=== PATIENT | female | born 1970 | race Caucasian/White ===

== ENCOUNTER → 2016-06-12 | Outpatient (REF) | payer OTHER ==
[~2016-06-12] MED LIST: ATIV1TAB10 PO; IBUP80TA PO; MONT10TA2 PO; NEUR300C PO; PERC10TA17 PO; RIZA10TA2 PO; SOMA350T PO; TRAZ100T4 PO; VENL37.598 PO; [UNRECOGNIZED DRUG - CODE] OT
== END ==
LOC: M SFHCLERA 16:48
PROVIDERS: ATTEND Physician Assistant
DX: J02.9 Acute pharyngitis, unspecified (principal)

== ENCOUNTER → 2016-07-02 | Outpatient (CLI) | payer OTHER ==
[2016-07-02 14:29] LABS: BASO % 0.3 % (0.0-1.0); EOS # 0.5 K/mm3 (0.0-0.50); EOS % 5.9 % (0.0-3.0); LARGE UNSTAINED CELL # 0.2 K/mm3 (0.0-0.4); LARGE UNSTAINED CELL % 1.7 % (0.0-4.0); LYMPH # 3.2 K/mm3 (1.5-4.5); LYMPH % 34.1 % (24.0-44.0); MEAN CORPUSCULAR HEMOGLOBIN 29.2 pg (27.0-33.0); MEAN CORPUSCULAR HGB CONC 33.1 g/dl (32.0-36.5); MEAN CORPUSCULAR VOLUME 88.2 fl (80.0-96.0); MONO # 0.4 K/mm3 (0.0-0.8); MONO % 4.9 % (0.0-5.0); NEUTROPHILS # 4.7 K/mm3 (1.8-7.7); NEUTROPHILS % 53.2 % (36.0-66.0); PLATELET COUNT, AUTOMATED 266 k/mm3 (150-450); RED CELL DISTRIBUTION WIDTH 12.2 % (11.5-14.5); WHITE BLOOD COUNT 8.9 K/mm3 (4.0-10.0)
--- NOTE | 2016-07-02 14:29 | REP ---
Clinical: Pain. Technique: AP weightbearing view of the right and left knee. Findings: Examination appears normal for age. Joint spaces are symmetric bilaterally. Minimal medial joint space compartment narrowing cannot be excluded. Impression: Minimal medial joint space narrowing. Signed by Tip Villanueva MD 07/02/2016 02:21 P
--- NOTE | 2016-07-02 14:29 | REP ---
Clinical: Trauma. Technique: AP, lateral, bilateral oblique and sunrise views right and left knee . Findings: The osseous structures and joint spaces are intact and normal. There is no evidence for acute fracture or dislocation. No joint effusion is appreciated. Surrounding soft tissues are unremarkable. No subcutaneous emphysema or radiodense foreign body. Impression: Age appropriate examination. Signed by Tip Villanueva MD 07/02/2016 02:20 P
--- NOTE | 2016-07-02 14:32 | REP ---
Clinical: Pain. Technique: AP, lateral, bilateral oblique views of the right and left hand. Findings: Osseous structures, soft tissues and joint spaces are relatively symmetric and normal for age. Mild joint space narrowing to the interphalangeal joints primarily involving the bilateral fifth distal interphalangeal joints. No further overt osteoarthritic degenerative changes are identified. No acute fracture dislocation. Impression: Mild joint space narrowing at the interphalangeal joints. Signed by Tip Villanueva MD 07/02/2016 02:24 P
--- NOTE | 2016-07-02 14:35 | REP ---
Clinical: Pain. Technique: AP, angled, and bilateral oblique views of the sacroiliac joints. Findings: Sacroiliac joints are symmetric and normal for age. Impression: Normal symmetric sacroiliac joints. Signed by Tip Villanueva MD 07/02/2016 02:27 P
[2016-07-02 15:01] LABS: ALBUMIN 3.6 GM/DL (3.2-5.2); ALBUMIN/GLOBULIN RATIO 1.16 (1.00-1.93); ALKALINE PHOSPHATASE 129 U/L (45-117); ALT/SGPT 21 U/L (12-78); ANION GAP 6 MEQ/L (8-16); AST/SGOT 18 U/L (15-37); BILIRUBIN,TOTAL 0.1 MG/DL (0.2-1.0); BLOOD UREA NITROGEN 15 MG/DL (7-18); CALCIUM LEVEL 9.2 MG/DL (8.5-10.1); CARBON DIOXIDE LEVEL 29 MEQ/L (21-32); CHLORIDE LEVEL 108 MEQ/L (98-107); CREATININE FOR GFR 0.93 MG/DL (0.55-1.02); GLOMERULAR FILTRATION RATE > 60.0 (>58); GLUCOSE, FASTING 127 MG/DL (70-105); SODIUM LEVEL 143 MEQ/L (136-145); TOTAL PROTEIN 6.7 GM/DL (6.4-8.2)
[2016-07-02 15:24] LABS: ERYTHROCYTE SEDIMENTATION RATE 25 mm/hr (0-20)
[2016-07-04 00:06] LABS: IgG P18 AB Present (.); IgG P23 AB Absent (.); IgG P28 AB Absent (.); IgG P30 AB Absent (.); IgG P41 AB Present (.); IgG P45 AB Absent (.); IgG P58 AB Absent (.); IgG P66 AB Absent (.); IgG P93 AB Absent (.); IgM P39 AB Absent (.); IgM P41 AB Absent (.)
== END ==
LOC: M LAB 13:21
PROVIDERS: ATTEND Internal Medicine Rheumatology
DX: M35.9 Systemic involvement of connective tissue, unspecified (principal); E55.9 Vitamin D deficiency, unspecified; Z79.899 Other long term (current) drug therapy; M79.641 Pain in right hand; M79.642 Pain in left hand; M25.561 Pain in right knee; M25.562 Pain in left knee; M53.3 Sacrococcygeal disorders, not elsewhere classified

== ENCOUNTER → 2016-07-02 | Outpatient (CLI) | payer OTHER ==
[2016-07-02 14:28] LABS: BASO % 0.4 % (0.0-1.0); EOS # 0.5 K/mm3 (0.0-0.50); LARGE UNSTAINED CELL # 0.1 K/mm3 (0.0-0.4); LARGE UNSTAINED CELL % 1.3 % (0.0-4.0); LYMPH % 33.9 % (24.0-44.0); MEAN CORPUSCULAR HEMOGLOBIN 29.7 pg (27.0-33.0); MEAN CORPUSCULAR HGB CONC 33.7 g/dl (32.0-36.5); MONO # 0.5 K/mm3 (0.0-0.8); MONO % 5.4 % (0.0-5.0); NEUTROPHILS # 4.6 K/mm3 (1.8-7.7); PLATELET COUNT, AUTOMATED 283 k/mm3 (150-450); RED CELL DISTRIBUTION WIDTH 12.1 % (11.5-14.5); WHITE BLOOD COUNT 8.6 K/mm3 (4.0-10.0)
[2016-07-02 14:53] LABS: LUTEINIZING HORMONE 86.8 mIU/mL
[2016-07-02 14:58] LABS: ALBUMIN 3.6 GM/DL (3.2-5.2); ALBUMIN/GLOBULIN RATIO 1.13 (1.00-1.93); ALKALINE PHOSPHATASE 124 U/L (45-117); ALT/SGPT 21 U/L (12-78); ANION GAP 5 MEQ/L (8-16); AST/SGOT 17 U/L (15-37); BILIRUBIN,TOTAL 0.2 MG/DL (0.2-1.0); BLOOD UREA NITROGEN 14 MG/DL (7-18); CALCIUM LEVEL 9.2 MG/DL (8.5-10.1); CARBON DIOXIDE LEVEL 29 MEQ/L (21-32); CHLORIDE LEVEL 108 MEQ/L (98-107); CHOLESTEROL LEVEL 254 MG/DL (<200); CREATININE FOR GFR 0.94 MG/DL (0.55-1.02); GLOMERULAR FILTRATION RATE > 60.0 (>58); GLUCOSE, FASTING 127 MG/DL (70-105); POTASSIUM SERUM 4.1 MEQ/L (3.5-5.1); SODIUM LEVEL 142 MEQ/L (136-145); TOTAL PROTEIN 6.8 GM/DL (6.4-8.2); TRIGLYCERIDES LEVEL 196 MG/DL (<150)
== END ==
LOC: M LAB 13:16
PROVIDERS: ATTEND Family Medicine
DX: Z00.00 Encounter for general adult medical examination without abnormal findings (principal)

== ENCOUNTER 2016-11-12 19:06 | Emergency (ER) | payer OTHER ==
[~2016-11-12] VITALS: Ht 162.6 cm; Wt 62.6 kg
[~2016-11-12 19:06] MED LIST changes: -PERC10TA17 PO; +PERC10TA26 PO; +TRAZ-136 PO; -TRAZ100T4 PO
[2016-11-12] MEDS ORDERED: HYDROmorphone HCL 1 MG/ML SYRINGE (J1170) IM ONE (20:00)
--- NOTE | 2016-11-12 21:30 | REPUSA ---
CLINICAL HISTORY: Neck pain. Trauma. TECHNIQUE: Multiple axial images were obtained through the cervical spine. Images were also reconstru cted in coronal and sagittal planes. The study was performed without IV contrast. COMMENTS: There is no fracture or spondylolisthesis visualized. The paraspinal soft tissues are unremarkable. T here are no lytic or blastic lesions. Straightening of cervical lordosis is seen, suggesting muscular spasm. There is evidence of multileve l disk disease, demonstrated by osteophytosis and endplate sclerosis. Moderate loss of disc space h eight is seen at C5-6. Herniations are noted at C3-C4 through C6-7 producing mild to moderate bilateral foraminal and canal stenosis at each level. IMPRESSION: 1. No fracture or spondylolisthesis. 2. Straightening of cervical lordosis is seen, suggesting muscular spasm. 3. Herniations are noted at C3-C4 through C6-7 producing mild to moderate bilateral foraminal and can al stenosis at each level. Thank you for your kind referral of this patient.
[2016-11-12] MEDS ORDERED: PERCOCET 5MG/325MG TAB PO ONE (21:45)
[2016-11-12] MEDS ORDERED: ONDANSETRON 4 MG ORAL DISINTEGRATING TAB (S0181) PO ONE (21:45)
[2016-11-12 21:55] VITALS: BP 112/66
--- NOTE | 2016-11-16 12:53 | ED PDOC ---
Post-Departure Follow-Up dr macias faxed formal report of ct c spine for fu Wesley Buitrago MD Nov 16, 2016 12:53
== END 2016-11-12 22:01 | disposition home or self-care (01) ==
LOC: M ED 19:06
DX: S16.1XXA Strain of muscle, fascia and tendon at neck level, initial encounter (principal); M54.9 Dorsalgia, unspecified; G89.29 Other chronic pain; Z72.0 Tobacco use; V49.40XA Driver injured in collision with unspecified motor vehicles in traffic accident, initial encounter; Y92.410 Unspecified street and highway as the place of occurrence of the external cause; Y93.89 Activity, other specified; Y99.9 Unspecified external cause status
CPT/HCPCS: 72125; 96372; 99282; J1170

== ENCOUNTER 2016-11-28 15:03 | Emergency (ER) | payer OTHER ==
[~2016-11-28] VITALS: Ht 162.6 cm; Wt 63.6 kg
[2016-11-28] MEDS ORDERED: KETOROLAC 30 MG/ML VIAL (J1885) IV ONE (16:15)
[2016-11-28] MEDS ORDERED: KETOROLAC 30 MG/ML VIAL (J1885) IM ONE (16:15)
[2016-11-28 16:36] VITALS: BP 121/72
[2016-11-28] MEDS ORDERED: NAPR500T3 PO (16:46)
--- NOTE | 2016-11-29 07:20 | REP ---
Cervical spine series: Seven views. History: Neck pain. Findings: Lateral views done in flexion/extension and neutral position show straightening and limitation of flexion/extension range of motion. No subluxation or instability is seen. There is degenerative disc narrowing and anterior osteophyte formation at C5-6. No subluxation or instability is seen. Open mouth odontoid and AP views are unremarkable. Oblique images demonstrate intact neural foramina bilaterally at each cervical level and normally aligned facets. Impression: Mild degenerative disc changes at C5-6. Straightening and limitation of flexion/extension range of motion. Otherwise negative. Signed by Neil Fountain MD 11/29/2016 08:47 A
--- NOTE | 2016-11-29 21:30 | ECGEPIP ---
Stationary ECG Study [facility] - ED Test Date: 2016-11-28 Pat Name: PETE ELIZALDE Department: Room: - Gender: F Local Flatbed Driver: lali : 1970 Requested By: JENNIFER Trent PA-C Order Number: [id number] Reading MD: Sarah Hart Measurements Intervals Spur Rate: 70 P: 60 AK: 160 QRS: 48 QRSD: 96 T: 50 QT: 387 QTc: 418 Interpretive Statements SINUS RHYTHM NO PRIOR FOR COMPARISON Electronically Signed On 11-29-2016 21:30:23 EDT by Sarah Hart
== END 2016-11-28 17:01 | disposition home or self-care (01) ==
LOC: M ED 15:03
DX: S90.122A Contusion of left lesser toe(s) without damage to nail, initial encounter (principal); S06.0X0A Concussion without loss of consciousness, initial encounter; Z72.0 Tobacco use; W20.8XXA Other cause of strike by thrown, projected or falling object, initial encounter; Y92.89 Other specified places as the place of occurrence of the external cause; Y93.89 Activity, other specified; Y99.0 Civilian activity done for income or pay
CPT/HCPCS: 72052; 93005; 96372; 96374; 99283; J1885

== ENCOUNTER 2016-12-03 18:51 | Emergency (ER) | payer OTHER ==
[~2016-12-03] VITALS: Ht 162.6 cm; Wt 63.6 kg
[~2016-12-03 18:51] MED LIST changes: +NAPR500T3 PO
[2016-12-03] MEDS ORDERED: CELE1CAP9 (19:00)
[2016-12-03] MEDS ORDERED: TRAZ1TAB14 (19:00)
[2016-12-03] MEDS ORDERED: GABA600T (19:00)
[2016-12-03] MEDS ORDERED: LORA0.5T11 (19:00)
[2016-12-03] MEDS ORDERED: RIZA10TA2 (19:00)
[2016-12-03] MEDS ORDERED: CARI350T (19:00)
[2016-12-03] MEDS ORDERED: LIDOCAINE 2% MDV 20 ML VIAL SC ONE (20:00)
[2016-12-03] MEDS ORDERED: DERMABOND TOPICAL SKIN ADHESIVE TOP ONE (20:00)
[2016-12-03 21:35] VITALS: BP 153/93
--- NOTE | 2016-12-04 10:54 | REP ---
LEFT GREAT TOE SERIES: Four views. HISTORY: Left great toe trauma. FINDINGS: Four views left great toe are presented. On the lateral radiograph there is a triangular fragment of bone dorsally adjacent to the distal tip of the distal phalanx. This may be an old chip fracture. It does not appear to be an acute finding. IMPRESSION: No acute fracture noted. Mild osteoarthritic spurring is seen at the 1st MTP joint. Signed by Neil Fountain MD 12/04/2016 09:22 A
== END 2016-12-03 21:38 | disposition home or self-care (01) ==
LOC: M ED 18:51
DX: S91.212A Laceration without foreign body of left great toe with damage to nail, initial encounter (principal); Z72.0 Tobacco use; X58.XXXA Exposure to other specified factors, initial encounter; Y92.89 Other specified places as the place of occurrence of the external cause; Y93.89 Activity, other specified; Y99.9 Unspecified external cause status

== ENCOUNTER → 2018-01-01 | Outpatient (CLI) | payer OTHER ==
[2018-01-01 09:37] LABS: APPEARANCE, URINE CLEAR (CLEAR); BACTERIA, URINE AUTO NEGATIVE (NEGATIVE); BILIRUBIN, URINE AUTO NEGATIVE (NEGATIVE); BLOOD, URINE BLOOD NEGATIVE (NEGATIVE); COLOR, URINE YELLOW (YELLOW); GLUCOSE, URINE (UA) AUTO NEGATIVE (NEGATIVE); KETONE, URINE AUTO NEGATIVE (NEGATIVE); LEUKOCYTE ESTERASE, URINE AUTO NEGATIVE (NEGATIVE); MUCUS, URINE SMALL (NEGATIVE); NITRITE, URINE AUTO NEGATIVE (NEGATIVE); PROTEIN, URINE AUTO NEGATIVE (NEGATIVE); RBC, URINE AUTO 0 /HPF (0-3); SPECIFIC GRAVITY URINE AUTO 1.013 (1.002-1.035); SQUAMOUS EPITHELIAL CELL UR AU 0 /HPF (0-6); UROBILINOGEN, URINE AUTO 0.2 mg/dL (0.0-2.0); WBC, URINE AUTO 0 /HPF (0-3)
[2018-01-01 09:39] LABS: BASO % 0.2 % (0.0-1.0); EOS # 0.5 10^3/uL (0.0-0.50); EOS % 2.8 % (0.0-3.0); HEMATOCRIT 40.9 % (36.0-47.0); HEMOGLOBIN 13.6 g/dl (12.0-15.5); IMMATURE GRANULOCYTE % 0.2 % (0-3.0); LYMPH # 3.5 10^3/uL (1.5-4.5); LYMPH % 21.5 % (24.0-44.0); MEAN CORPUSCULAR HEMOGLOBIN 30.2 pg (27.0-33.0); MEAN CORPUSCULAR HGB CONC 33.3 g/dl (32.0-36.5); MEAN CORPUSCULAR VOLUME 90.7 fl (80.0-96.0); MONO # 0.9 10^3/uL (0.0-0.8); MONO % 5.4 % (0.0-5.0); NEUTROPHILS # 11.5 10^3/uL (1.8-7.7); NEUTROPHILS % 69.9 % (36.0-66.0); PLATELET COUNT, AUTOMATED 319 10^3/uL (150-450); RED BLOOD COUNT 4.51 10^6/uL (4.00-5.40); RED CELL DISTRIBUTION WIDTH 12.4 % (11.5-14.5); WHITE BLOOD COUNT 16.4 10^3/uL (4.0-10.0)
[2018-01-01 09:59] LABS: ALBUMIN 3.6 GM/DL (3.2-5.2); ALBUMIN/GLOBULIN RATIO 1.09 (1.00-1.93); ALKALINE PHOSPHATASE 134 U/L (45-117); ALT/SGPT 19 U/L (12-78); ANION GAP 7 MEQ/L (8-16); AST/SGOT 14 U/L (7-37); BILIRUBIN,TOTAL 0.2 MG/DL (0.2-1.0); BLOOD UREA NITROGEN 14 MG/DL (7-18); CARBON DIOXIDE LEVEL 28 MEQ/L (21-32); CHLORIDE LEVEL 108 MEQ/L (98-107); CHOLESTEROL LEVEL 236 MG/DL (<200); CHOLESTEROL RISK RATIO 5.619 (<5); FREE T4 0.94 NG/DL (0.76-1.46); GLOMERULAR FILTRATION RATE > 60.0 (>58); GLUCOSE, FASTING 90 MG/DL (70-100); HDL CHOLESTEROL 42 MG/DL (>40); LDL CHOLESTEROL 167 MG/DL (<100); NON-HDL-C 194 MG/DL; POTASSIUM SERUM 4.7 MEQ/L (3.5-5.1); SODIUM LEVEL 143 MEQ/L (136-145); TOTAL PROTEIN 6.9 GM/DL (6.4-8.2); TRIGLYCERIDES LEVEL 133 MG/DL (<150)
== END ==
LOC: M LAB 09:03
DX: Z00.00 Encounter for general adult medical examination without abnormal findings (principal); M17.12 Unilateral primary osteoarthritis, left knee
CPT/HCPCS: 72100

== ENCOUNTER → 2018-01-01 | Outpatient (CLI) | payer OTHER | LOC: M RAD 09:03 | DX: M25.562 Pain in left knee (principal) | CPT/HCPCS: 72100 ==

== ENCOUNTER → 2018-03-09 | Outpatient (REF) | payer OTHER | LOC: M SFHCLERA 10:10 | DX: R11.2 Nausea with vomiting, unspecified (principal) ==

== ENCOUNTER → 2018-09-25 | Outpatient (CLI) | payer OTHER ==
[~2018-09-25] MED LIST changes: +CARI1TAB7; +CELE1CAP9; +GABA600T4; +LORA0.5T11; +NAPR-885 PO; -NAPR500T3 PO; +RIZA10TA2; -TRAZ-136 PO; +TRAZ-163 PO; +TRAZ1TAB14
[2018-09-25 13:16] LABS: BASO % 0.3 % (0.0-1.0); EOS # 0.5 10^3/uL (0.0-0.50); HEMATOCRIT 41.3 % (36.0-47.0); HEMOGLOBIN 14.3 g/dl (12.0-15.5); LYMPH % 34.2 % (24.0-44.0); MEAN CORPUSCULAR HEMOGLOBIN 31.4 pg (27.0-33.0); MEAN CORPUSCULAR HGB CONC 34.6 g/dl (32.0-36.5); MEAN CORPUSCULAR VOLUME 90.6 fl (80.0-96.0); MONO # 0.6 10^3/uL (0.0-0.8); MONO % 5.1 % (0.0-5.0); NEUTROPHILS # 6.5 10^3/uL (1.8-7.7); PLATELET COUNT, AUTOMATED 298 10^3/uL (150-450); RED BLOOD COUNT 4.56 10^6/uL (4.00-5.40); WHITE BLOOD COUNT 11.6 10^3/uL (4.0-10.0)
[2018-09-25 13:54] LABS: CHOLESTEROL RISK RATIO 3.711 (<5); FREE T4 1.09 NG/DL (0.76-1.46); THYROID STIMULATING HORMONE 0.934 uIU/ML (0.358-3.740)
== END ==
LOC: M LAB 12:54
PROVIDERS: ATTEND Family Medicine
DX: E78.00 Pure hypercholesterolemia, unspecified (principal); D72.829 Elevated white blood cell count, unspecified; Z13.29 Encounter for screening for other suspected endocrine disorder

== ENCOUNTER → 2018-11-10 | Outpatient (CLI) | payer OTHER ==
[~2018-11-10] MED LIST changes: +AJOV225I SUBQ; +ATOR1TAB21 PO; +ISOVUE-370 76% 100ML VIAL (Q9967) As Ordered ONE
--- NOTE | 2018-11-10 12:17 | REP ---
CT BRAIN WITHOUT AND WITH IV CONTRAST: HISTORY: Mass in the left cheek. CT CONTRAST DOSE: 100 mL of intravenous Isovue 370. CT FINDINGS: Bony calvarium is intact. Digital business services assistant views are unremarkable. The visualized paranasal sinuses are clear. No scalp lesion is appreciated. Lateral, third, and fourth ventricles are normal in size and position. Saldana-white differentiation pattern is intact above below the tentorium. There is no evidence of infarct, hemorrhage, extra-axial fluid collection, or mass. No midline shift is seen. Postcontrast images show enhancement in normal vasculature. No abnormal intracranial contrast enhancement is appreciated. IMPRESSION: Normal CT brain without and with IV contrast. Electronically Signed by Neil Fountain MD 11/10/2018 02:19 P
--- NOTE | 2018-11-10 12:24 | REP ---
SOFT-TISSUE CT STUDY OF THE NECK WITH IV CONTRAST: HISTORY: Left cheek mass. CT CONTRAST DOSE: 100 mL of intravenous Isovue 370. An opaque BB is affixed to the skin in the left zygomatic region to denote the area of interest. Comparison CT images are from November 12, 2016. There is a maxillofacial CT study from May 22, 2014. CT FINDINGS: Parotid and submandibular glands are normal and symmetric. No intraparotid mass lesion is seen. There are scattered normal-sized cervical lymph nodes. There is no evidence of cervical mass or adenopathy. There is no evidence to suggest lipoma at the site of the opaque BB marker. The underlying zygomatic arch is intact. No bony destructive lesion is seen. Paranasal sinuses are clear as visualized. No intraorbital abnormality is observed. The peritonsillar soft tissues are intact. Floor of mouth structures appear intact. Glottic and subglottic airway is unremarkable. Thyroid lobes are normal and homogeneous. No vascular abnormalities observed. The lung apices are clear. IMPRESSION: No evidence of mass or adenopathy seen. Electronically Signed by Neil Fountain MD 11/10/2018 02:19 P
== END ==
LOC: M RAD 11:11
PROVIDERS: ATTEND Internal Medicine
DX: D72.829 Elevated white blood cell count, unspecified (principal)
CPT/HCPCS: 70470; 70491; Q9967

== ENCOUNTER 2018-11-22 18:06 | Observation (INO) | payer OTHER ==
[~2018-11-22] VITALS: Ht 162.6 cm; Wt 61.0 kg
[~2018-11-22 18:06] MED LIST changes: +AJOV225I SC; -AJOV225I SUBQ; -ISOVUE-370 76% 100ML VIAL (Q9967) As Ordered ONE; -LORA0.5T11; +LORA0.5T5; -TRAZ-163 PO; +TRAZ-257 PO
[2018-11-22] MEDS ORDERED: ATORVASTATIN 20 MG TAB PO SCH (21:00)
[2018-11-22] MEDS ORDERED: TRAZ1TAB14 PO (21:06)
[2018-11-22] MEDS ORDERED: GABA600T4 PO (21:06)
[2018-11-22] MEDS ORDERED: HYDR50TA70 PO (21:06)
[2018-11-22] MEDS ORDERED: SING10TA32 PO (21:06)
[2018-11-22] MEDS ORDERED: LORA-622 PO (21:06)
[2018-11-22 21:29] LABS: BLOOD UREA NITROGEN 14 MG/DL (7-18); CALCIUM LEVEL 8.7 MG/DL (8.5-10.1); CARBON DIOXIDE LEVEL 28 MEQ/L (21-32); CHLORIDE LEVEL 108 MEQ/L (98-107); GLOMERULAR FILTRATION RATE > 60.0 (>58); GLUCOSE, FASTING 83 MG/DL (70-100); POTASSIUM SERUM 4.4 MEQ/L (3.5-5.1); SODIUM LEVEL 142 MEQ/L (136-145)
[2018-11-22 21:52] LABS: INR 0.98; PROTHROMBIN TIME 12.7 SECONDS (11.8-14.0)
--- NOTE | 2018-11-22 23:24 | HPEPDOC ---
[facility] Medical History & Physical Date of Admission Nov 22, 2018 Date of Service: Nov 22, 2018 Primary Care Physician: A Other Provider PCP Edmundo Jones MD Attending Physician: LISETH PAZ MD History and Physical Time of service 10:50 PM CHIEF COMPLAINT: Sent by oncologist, Dr. Dinero for evaluation HISTORY OF PRESENT ILLNESS: Ms. Kumar is a 48-year-old female who was sent for evaluation by her oncologist because of a drop in her hemoglobin. Per discussion with the ED attending her baseline hemoglobin is around 14, but was noted to dropped to 9.8; the hemoccult was positive. The patient's only complaint is of feeling weak and tired; she denies having any chest pain, denies feeling dizzy, denies having blood in her urine, blood in her stools, or blood when she brushes her teeth. Of note, she became menopausal around 41 years old. She denies having fevers or chills, has lost about 20 pounds in the last 3 months unintentionally. REVIEW OF SYSTEMS: 12 point review of systems negative except as listed in HPI PAST MEDICAL / SURGICAL HISTORY: 1. Osteoarthritis 2. Migraines. 3. Hx of Leukocytosis (is being followed by Fixed Route Bus Operator) 4. Status post right salpingo-oophorectomy to manage an ectopic . 5. Status post laparoscopic cholecystectomy. 6. Status post resection of kidney stone. 7. Early menopause. 8. Status post left knee replacement SOCIAL HISTORY: Tobacco use daily FAMILY HISTORY: Unknown because the patient's mother is adopted and she doesn't father ALLERGIES: Please see below. HOME MEDICATIONS: Please see below. PHYSICAL EXAMINATION: VITAL SIGNS: Temperature 99.0, pulse 61, respiratory rate 14, blood pressure 111/66, pulse oximetry 99% on room air GENERAL APPEARANCE: Well-nourished, well-developed HEENT: normocephalic, atraumatic, mucous members moist and pink, there is no angular cheilitis glossitis, there is no conjunctival pallor CARDIOVASCULAR: Regular rate and rhythm, no murmurs, rubs or gallops, radial pulses are intact, maser, warm and well-perfused LUNGS: Clear to auscultation bilaterally on room air ABDOMEN: The abdomen is soft and nontender on palpation MUSCULOSKELETAL: Range of motion is intact in all 4 extremities EXTREMITIES: No lower extremity edema NEUROLOGICAL: Regular 2-12 grossly intact. Speech is not dysarthric PSYCHIATRIC: Alert and oriented to person, place, time, able to understand and follow commands, has a flat affect LABORATORY DATA: CBC is remarkable for hemoglobin 9.8 with MCV of 93. Chemistries remarkable for chloride of 108. IMAGING: Not applicable MICROBIOLOGY: Please see below. ASSESSMENT: . Ms. Stacy hodge is a 48-year-old female the past medical history of arthritis, migraines, early menopause, multiple surgeries that is admitted for evaluation of acute anemia. PLAN: 1. Acute Normocytic Normochromic Anemia Cause to be determined Stool occult positive The patient has been post-menopausal for atleast 7 yrs Plan: admit to general medical floor/follow-up repeat hemoglobin to rule out lab error / If hemoglobin is truly low, will order reticulocyte #, iron panel w ferritin, B12, folate, thiamine / CLD pending re-evaluation by the day time team can determine if the patient needs an in- pt vs out pt scope 2. Osteoarthritis Plan continue home meds 3 . Migraines Plan continue home meds DVT prophylaxis with SCDs bc of acute drop in hemoglobin Disposition pending clinical course Laboratory Data CBC/BMP Laboratory Tests 11/22/18 20:45 Calcium Level 8.7 Home Medications Scheduled Atorvastatin Calcium (Atorvastatin Calcium) 20 Mg Tablet, 20 MG PO QHS Fremanezumab-Vfrm (Ajovy) 225 Mg/1.5 Ml Syringe, 225 MG SC QMONTH Scheduled PRN Carisoprodol (Soma) 350 Mg Tab, 350 MG PO TID PRN for MUSCLE SPASMS Gabapentin (Gabapentin) 600 Mg Tablet, 600 MG PO BID PRN for MUSCLE SPASMS Hydroxyzine HCl (Hydroxyzine HCl) 50 Mg Tablet, 50 MG PO Q6H PRN for ANXIETY Loratadine (Loratadine) 10 Mg Tablet, 10 MG PO DAILY PRN for ALLERGY SYMPTOMS Montelukast Sodium (Singulair) 10 Mg Tablet, 10 MG PO DAILY PRN for ALLERGY SYMPTOMS Oxycodone HCl/Acetaminophen (Percocet 10-325 mg Tablet) 1 Tab Tab, 1 TAB PO Q6H PRN for PAIN Trazodone HCl (Trazodone HCl) 150 Mg Tablet, 150 MG PO QHS PRN for SLEEP Allergies Coded Allergies: Penicillins (Verified Allergy, Severe, 11/07/18) SWELLING AND HIVES ciprofloxacin (Verified Allergy, Intermediate, 11/07/18) HIVES AND SWELLING A-FIB/CHADSVASC A-FIB History Current/History of A-Fib/PAF?: No Current PO Anticoag Therapy: No LISETH PAZ MD Nov 22, 2018 23:23
[2018-11-23] MEDS ORDERED: hydrOXYzine 50 MG TAB PO PRN (02:30)
[2018-11-23] MEDS ORDERED: carisoprodoL 350 MG TAB PO PRN (02:30)
[2018-11-23] MEDS ORDERED: traZODone 50 MG TAB PO PRN (02:30)
[2018-11-23] MEDS ORDERED: MONTELUKAST 10 MG TAB PO PRN (02:30)
[2018-11-23] MEDS ORDERED: PERCOCET 5MG/325MG TAB PO PRN (02:30)
[2018-11-23] MEDS ORDERED: GABAPENTIN 300 MG CAP PO PRN (02:30)
[2018-11-23 02:47] LABS: HEMOGLOBIN 12.9 g/dl (12.0-15.5)
[2018-11-23 02:51] LABS: FERRITIN 46 NG/ML (8-252); IRON (FE) 60 UG/DL (50-170); PERCENT SATURATION 17.9 % (13.2-45.0); TOTAL IRON BINDING CAPACITY 335 UG/DL (250-450)
[2018-11-23 04:45] VITALS: BP 130/62
[2018-11-23 06:00] VITALS: BP 123/60
[2018-11-23 06:03] LABS: HEMATOCRIT 38.9 % (36.0-47.0); HEMOGLOBIN 12.9 g/dl (12.0-15.5); MEAN CORPUSCULAR HEMOGLOBIN 29.9 pg (27.0-33.0); MEAN CORPUSCULAR HGB CONC 33.2 g/dl (32.0-36.5); MEAN CORPUSCULAR VOLUME 90.3 fl (80.0-96.0); PLATELET COUNT, AUTOMATED 292 10^3/uL (150-450); RED BLOOD COUNT 4.31 10^6/uL (4.00-5.40); WHITE BLOOD COUNT 9.3 10^3/uL (4.0-10.0)
[2018-11-23 06:14] LABS: ALBUMIN 3.2 GM/DL (3.2-5.2); ALT/SGPT 22 U/L (12-78); BILIRUBIN,TOTAL 0.3 MG/DL (0.2-1.0); BLOOD UREA NITROGEN 13 MG/DL (7-18); CARBON DIOXIDE LEVEL 28 MEQ/L (21-32); CHLORIDE LEVEL 109 MEQ/L (98-107); CREATININE FOR GFR 0.65 MG/DL (0.55-1.30); GLOMERULAR FILTRATION RATE > 60.0 (>58); GLUCOSE, FASTING 94 MG/DL (70-100); MAGNESIUM LEVEL 2.2 MG/DL (1.8-2.4); POTASSIUM SERUM 3.8 MEQ/L (3.5-5.1); SODIUM LEVEL 141 MEQ/L (136-145); TOTAL PROTEIN 6.5 GM/DL (6.4-8.2)
[2018-11-23] MEDS ORDERED: ENOXAPARIN 40 MG/0.4 ML SYRINGE (J1650) SC SCH (09:00)
[2018-11-23] MEDS ORDERED: LORATADINE 10 MG TAB PO SCH (09:00)
[2018-11-23 09:21] LABS: FOLATE 9.9 NG/ML (>5.4); VITAMIN B12 LEVEL 538 PG/ML (247-911)
--- NOTE | 2018-11-23 17:54 | DS.PDOC ---
Discharge Summary General Date of Admission Nov 22, 2018 at 22:12 Date of Discharge 11/23/18 Primary Care Physician: YOEL ZAPIEN MD Specialist/Consultants Involve PCP - Dr Jones in [place] Discharge Summary PROCEDURES PERFORMED DURING STAY: none ADMITTING DIAGNOSES: 1. Acute Normocytic Normochromic Anemia 2. Osteoarthritis 3 . Migraines DISCHARGE DIAGNOSES: 1. Lab error - no signs of anemia 2. leukocytosis - intermittent 3. OA 4. history of migraine IBARRA without interactible pain COMPLICATIONS/CHIEF COMPLAINT: Anemia/ Leukocytosis. HISTORY OF PRESENT ILLNESS: Ms. Kumar is a 48-year-old female who was sent for evaluation by her oncologist because of a drop in her hemoglobin. Per discussion with the ED attending her baseline hemoglobin is around 14, but was noted to dropped to 9.8; the hemoccult was positive. The patient's only complaint is of feeling weak and tired; she denies having any chest pain, denies feeling dizzy, denies having blood in her urine, blood in her stools, or blood when she brushes her teeth. Of note, she became menopausal around 41 years old. She denies having fevers or chills, has lost about 20 pounds in the last 3 months unintentionally. HOSPITAL COURSE: [patient placed under observation. repeat CBC showed stable hemoglobin at 12.9 She had no active bleeding. She had colonoscopy 2 years ago with polyp removed. Her intermittent leukocytosis - resolved. She had no signs of anemia. She is being discharged in stable and improved condition and earlier labs with hemoglobin 9.8 is felt to be lab error. DISCHARGE MEDICATIONS: Please see below. ALLERGIES: Please see below. PHYSICAL EXAMINATION ON DISCHARGE: VITAL SIGNS: Please see below. General: pleasant, NAD AAOx3 HRRR LCTA Skin: sotelo (intentional sun tanning) LABORATORY DATA: Please see below. ACTIVITY: as tolerated DIET: as tolerated DISCHARGE PLAN: discharge home DISCHARGE INSTRUCTIONS: Follow up with Dr Zapien - heme/onc in 1-2 days follow up with Dr Jones in 1-2 weeks ITEMS TO FOLLOWUP ON ON OUTPATIENT: pateint will discuss with PCP whether or not colonoscopy /EGD is needed for heme + stool DISCHARGE CONDITION: stable TIME SPENT ON DISCHARGE: 15 minute Vital Signs/I&Os Vital Signs Date Time Temp Pulse Resp B/P (MAP) Pulse Ox O2 Delivery O2 Flow Rate FiO2 11/23/18 06:00 97.5 58 18 123/60 (81) 99 11/22/18 18:07 Room Air Laboratory Data Labs 24H Laboratory Tests 2 11/22/18 20:45: Anion Gap 6L, Glomerular Filtration Rate > 60.0, Blood Urea Nitrogen 14, Creatinine 0.80, Sodium Level 142, Potassium Level 4.4, Chloride Level 108H, Carbon Dioxide Level 28, Calcium Level 8.7, Iron Level 60, Total Iron Binding Capacity 335, Transferrin % Saturation 17.9, Ferritin 46, Vitamin B12 Level 538, Folate 9.9 11/22/18 21:21: Prothrombin Time 12.7, Prothromb Time International Ratio 0.98, Activated Partial Thromboplast Time 34.0 11/23/18 02:40: Reticulocyte # (auto) 48.6, Percent Reticulocyte Count 1.1, Reticulocyte Hemoglobin Equivalent 34.3 11/23/18 05:37: Anion Gap 4L, Glomerular Filtration Rate > 60.0, Blood Urea Nitrogen 13, Creatinine 0.65, Sodium Level 141, Potassium Level 3.8, Chloride Level 109H, C arbon Dioxide Level 28, Calcium Level 9.0, Nucleated Red Blood Cells % (auto) 0.0, Aspartate Amino Transf (AST/SGOT) 18, Alanine Aminotransferase (ALT/SGPT) 22, Alkaline Phosphatase 115, Total Bilirubin 0.3, Total Protein 6.5, Albumin 3.2, Magnesium Level 2.2, Albumin/Globulin Ratio 0.97L CBC/BMP Laboratory Tests 11/22/18 20:45 Calcium Level 8.7 11/23/18 02:40 11/23/18 05:37 Calcium Level 9.0, Red Blood Count 4.31, Mean Corpuscular Volume 90.3, Mean Corpuscular Hemoglobin 29.9, Mean Corpuscular Hemoglobin Concent 33.2, Red Cell Distribution Width 12.3, Aspartate Amino Transf (AST/SGOT) 18, Alanine Aminotransferase (ALT/SGPT) 22, Alkaline Phosphatase 115, Total Bilirubin 0.3, Total Protein 6.5, Albumin 3.2 Discharge Medications Scheduled Atorvastatin Calcium (Atorvastatin Calcium) 20 Mg Tablet, 20 MG PO QHS, (Reported) Fremanezumab-Vfrm (Ajovy) 225 Mg/1.5 Ml Syringe, 225 MG SC QMONTH, (Reported) Scheduled PRN Carisoprodol (Soma) 350 Mg Tab, 350 MG PO TID PRN for MUSCLE SPASMS, (Reported) Gabapentin (Gabapentin) 600 Mg Tablet, 600 MG PO BID PRN for MUSCLE SPASMS, (Reported) Hydroxyzine HCl (Hydroxyzine HCl) 50 Mg Tablet, 50 MG PO Q6H PRN for ANXIETY, (Reported) Loratadine (Loratadine) 10 Mg Tablet, 10 MG PO DAILY PRN for ALLERGY SYMPTOMS, (Reported) Montelukast Sodium (Singulair) 10 Mg Tablet, 10 MG PO DAILY PRN for ALLERGY SYMPTOMS, (Reported) Oxycodone HCl/Acetaminophen (Percocet 10-325 mg Tablet) 1 Tab Tab, 1 TAB PO Q6H PRN for PAIN, (Reported) Trazodone HCl (Trazodone HCl) 150 Mg Tablet, 150 MG PO QHS PRN for SLEEP, (Reported) Allergies Coded Allergies: Penicillins (Verified Allergy, Severe, 11/07/18) SWELLING AND HIVES ciprofloxacin (Verified Allergy, Intermediate, 11/07/18) HIVES AND SWELLING GALINDO CARNEY DO Nov 23, 2018 11:30
== END 2018-11-23 13:45 | disposition home or self-care (01) ==
LOC: M ED 18:06 → M ED INP 22:12 → M MS5PR 11-23 04:45
PROVIDERS: ADMIT Internal Medicine; ATTEND Internal Medicine
DX: D72.829 Elevated white blood cell count, unspecified (principal); M19.90 Unspecified osteoarthritis, unspecified site; G43.919 Migraine, unspecified, intractable, without status migrainosus; Z79.899 Other long term (current) drug therapy; Z88.0 Allergy status to penicillin; F17.210 Nicotine dependence, cigarettes, uncomplicated

== ENCOUNTER 2019-01-20 11:21 | Day surgery (SDC) | payer OTHER ==
[~2019-01-20] VITALS: Ht 162.6 cm; Wt 59.6 kg
[~2019-01-20 11:21] MED LIST changes: +GABA600T4 PO; +HYDR50TA70 PO; +LIDOCAINE 2% INJ 100 MG/5 ML SDV (FOR ANES.) As Ordered ONE; +LORA-622 PO; +LORA0.5T11; -LORA0.5T5; +NS 1,000 ML IV ONE; +PROPOFOL 200 MG/20 ML VIAL As Ordered ONE; +SING10TA32 PO; +TRAZ-163 PO; -TRAZ-257 PO; +TRAZ1TAB14 PO; +oxyCODONE 5MG TAB As Ordered ONE
--- NOTE | 2019-01-20 13:23 | ROOR ---
Patient Name: Smita Kumar Procedure Date: 01/20/2019 12:31 PM Date of : 1970 Age: 49 Room: [facility] Gender: Female Note Status: Finalized Procedure: Upper GI endoscopy Indications: Iron deficiency anemia, Dyspepsia Providers: Ben Chowdary MD Referring MD: Edmundo IBANEZ MD Requesting Provider: Medicines: Monitored Anesthesia Care Complications: No immediate complications. Procedure: Pre-Anesthesia Assessment: - Prior to the procedure, a History and Physical was performed, and patient medications and allergies were reviewed. The patient is competent. The risks and benefits of the procedure and the sedation options and risks were discussed with the patient. All questions were answered and informed consent was obtained. Patient identification and proposed procedure were verified by the physician, the nurse and the anesthesiologist in the procedure room. Mental Status Examination: alert and oriented. Airway Examination: normal oropharyngeal airway and neck mobility. Respiratory Examination: clear to auscultation. CV Examination: normal. Prophylactic Antibiotics: The patient does not require prophylactic antibiotics. Prior Anticoagulants: The patient has taken no previous anticoagulant or antiplatelet agents. ASA Grade Assessment: II - A patient with mild systemic disease. After reviewing the risks and benefits, the patient was deemed in satisfactory condition to undergo the procedure. The anesthesia plan was to use monitored anesthesia care (MAC). Immediately prior to administration of medications, the patient was re-assessed for adequacy to receive sedatives. The heart rate, respiratory rate, oxygen saturations, blood pressure, adequacy of pulmonary ventilation, and response to care were monitored throughout the procedure. The physical status of the patient was re-assessed after the procedure. The Endoscope was introduced through the mouth, and advanced to the second part of duodenum. The upper GI endoscopy was accomplished without difficulty. The patient tolerated the procedure well. Findings: The examined esophagus was normal. Scattered moderate inflammation characterized by adherent blood, friability and granularity was found in the gastric body and in the gastric antrum. Biopsies were taken with a cold forceps for histology and Helicobacter pylori testing. Verification of patient identification for the specimen was done by the physician and nurse using the patient's name, date and medical record number. Estimated blood loss was minimal. The duodenal bulb and second portion of the duodenum were normal. Biopsies for histology were taken with a cold forceps for evaluation of celiac disease. Impression: - Normal esophagus. - Gastritis. Biopsied. - Normal duodenal bulb and second portion of the duodenum. Biopsied. Recommendation: - Patient has a contact number available for emergencies. The signs and symptoms of potential delayed complications were discussed with the patient. Return to normal activities tomorrow. Written discharge instructions were provided to the patient. - High fiber diet. - Continue present medications. - Await pathology results. - Use Prilosec (omeprazole) 40 mg PO Daily - to be taken psychologist chief on empty stomach for 8 weeks. - Telephone GI clinic for pathology results in 2 weeks. - Return to primary care physician. Ben Chowdary MD Ben Chowdary MD 01/20/2019 1:22:41 PM Electronically signed by Ben Chowdary MD Number of Addenda: 0 Note Initiated On: 01/20/2019 12:31 PM Estimated Blood Loss: Estimated blood loss was minimal.
[2019-01-20 13:40] VITALS: BP 115/61
--- NOTE | 2019-01-25 15:22 | ROOR ---
Patient Name: Smita Kumar Procedure Date: 01/20/2019 12:32 PM Date of : 1970 Age: 49 Room: [facility] Gender: Female Note Status: Finalized Procedure: Colonoscopy Indications: Acute post hemorrhagic anemia, Weight loss Providers: Ben Chowdary MD Referring MD: Edmundo IBANEZ MD Requesting Provider: Medicines: Monitored Anesthesia Care Complications: No immediate complications. Procedure: Pre-Anesthesia Assessment: - Prior to the procedure, a History and Physical was performed, and patient medications and allergies were reviewed. The patient is competent. The risks and benefits of the procedure and the sedation options and risks were discussed with the patient. All questions were answered and informed consent was obtained. Patient identification and proposed procedure were verified by the physician, the nurse and the anesthesiologist in the procedure room. Airway Examination: normal oropharyngeal airway and neck mobility. Prophylactic Antibiotics: The patient does not require prophylactic antibiotics. Prior Anticoagulants: The patient has taken Pradaxa (dabigatran), last dose was 6 days prior to procedure. ASA Grade Assessment: II - A patient with mild systemic disease. After reviewing the risks and benefits, the patient was deemed in satisfactory condition to undergo the procedure. The anesthesia plan was to use monitored anesthesia care (MAC). Immediately prior to administration of medications, the patient was re-assessed for adequacy to receive sedatives. The heart rate, respiratory rate, oxygen saturations, blood pressure, adequacy of pulmonary ventilation, and response to care were monitored throughout the procedure. The physical status of the patient was re-assessed after the procedure. The Colonoscope was introduced through the anus and advanced to the terminal ileum, with identification of the appendiceal orifice and IC valve. The colonoscopy was performed without difficulty. The patient tolerated the procedure well. The quality of the bowel preparation was good. The terminal ileum, ileocecal valve, appendiceal orifice, and rectum were photographed. Scope insertion time was 3 minutes. Scope withdrawal time was 9 minutes. The total duration of the procedure was 12 minutes. Findings: The perianal and digital rectal examinations were normal. The terminal ileum appeared normal. A 10 mm polyp was found in the cecum. The polyp was sessile. The polyp was removed with a cold snare. Resection and retrieval were complete. Verification of patient identification for the specimen was done by the physician and nurse using the patient's name, date and medical record number. Estimated blood loss was minimal. A 6 mm polyp was found in the transverse colon. The polyp was sessile. The polyp was removed with a cold snare. Resection and retrieval were complete. Non-bleeding external and internal hemorrhoids were found during retroflexion. The hemorrhoids were small. Impression: - The examined portion of the ileum was normal. - One 10 mm polyp in the cecum, removed with a cold snare. Resected and retrieved. - One 6 mm polyp in the transverse colon, removed with a cold snare. Resected and retrieved. - Non-bleeding external and internal hemorrhoids. Recommendation: - Patient has a contact number available for emergencies. The signs and symptoms of potential delayed complications were discussed with the patient. Return to normal activities tomorrow. Written discharge instructions were provided to the patient. - High fiber diet. - Continue present medications. - Await pathology results. - Repeat colonoscopy in 3 - 5 years for surveillance based on pathology results. - Telephone GI clinic for pathology results in 2 weeks. - Return to primary care physician. Attending Participation: I personally performed the entire procedure. Ben Chowdary MD Ben Chowdary MD 01/25/2019 3:22:37 PM Electronically signed by Ben Chowdary MD Number of Addenda: 0 Note Initiated On: 01/20/2019 12:32 PM Estimated Blood Loss: Estimated blood loss was minimal.
== END 2019-01-20 13:49 | disposition home or self-care (01) ==
LOC: M OPP 11:21
PROVIDERS: ATTEND Internal Medicine Gastroenterology
DX: K64.8 Other hemorrhoids (principal); D12.0 Benign neoplasm of cecum; D12.3 Benign neoplasm of transverse colon; R63.4 Abnormal weight loss; D62 Acute posthemorrhagic anemia; K29.70 Gastritis, unspecified, without bleeding; D50.9 Iron deficiency anemia, unspecified; R10.13 Epigastric pain; Z79.891 Long term (current) use of opiate analgesic; Z79.899 Other long term (current) drug therapy; Z88.0 Allergy status to penicillin; Z88.1 Allergy status to other antibiotic agents; Z91.89 Other specified personal risk factors, not elsewhere classified; F17.210 Nicotine dependence, cigarettes, uncomplicated

== ENCOUNTER → 2019-12-28 | Outpatient (CLI) | payer OTHER ==
[~2019-12-28] MED LIST changes: -LIDOCAINE 2% INJ 100 MG/5 ML SDV (FOR ANES.) As Ordered ONE; -LORA0.5T11; +LORA0.5T5; -MONT10TA2 PO; +MONT10TA4 PO; -NS 1,000 ML IV ONE; -PROPOFOL 200 MG/20 ML VIAL As Ordered ONE; -TRAZ-163 PO; +TRAZ-257 PO; -oxyCODONE 5MG TAB As Ordered ONE
--- NOTE | 2020-01-10 12:55 | REP ---
RIGHT ANKLE SERIES: CLINICAL: Generalized pain. TECHNIQUE: AP, lateral, bilateral oblique views of the right ankle. FINDINGS: Lateral soft tissue swelling is appreciated. Small corticated fragment at the tip of the fibula may represent old avulsion fracture, although acute injury cannot definitively be excluded. The ankle mortise appears intact. The medial malleolus appears intact. IMPRESSION: Lateral soft tissue swelling and suspected old injury at the tip of the fibula, less likely representing acute avulsion injury. MTDD
== END ==
LOC: M WUC 14:40
PROVIDERS: ATTEND Physician Assistant
DX: M25.571 Pain in right ankle and joints of right foot (principal)